=== PATIENT | female | born 1945 | race Caucasian/White ===

== ENCOUNTER 2023-05-28 18:54 | Inpatient (IN) ==
[2023-05-28] MEDS ORDERED: ONDANSETRON INJ 2 MG/ML 2 ML VIAL IV STA (19:28)
[2023-05-28] MEDS ORDERED: MoRPHine SULFATE 4 MG/ML 1 ML CARP\\VIAL IV STA ×2 (19:28→21:58)
--- NOTE | 2023-05-28 19:31 | Emergency Department Note ---
Impression & Plan Closed hip fracture ADMIT ED Provider Note HPI: History obtained from patient and daughter at the bedside. The patient is a 78-year-old female who presents emergency department with chief complaint of left hip pain after mechanical fall. Patient's daughter is at the bedside and is serving as the primary historian. She states that the patient tripped when the dog ran in front of her inside the house. Patient fell on her left hip and has had severe left hip pain since her fall. She has been unable to bear weight on her left leg. On arrival here to the ED the patient is otherwise hemodynamically stable. She denies any other focal complaint of pain, denies hitting her head. Patient has motor and sensory function intact distally in the left lower extremity on arrival. ROS: - Per HPI Differential Diagnosis: Left hip fracture, left hip dislocation, left hip contusion, osteoarthritis, amongst other potential pathologies. *Outpatient medications and allergy history reviewed. PE: General: Alert HEENT: Normocephalic, trachea midline Eyes: Extraocular eye movement is intact, no scleral erythema Pulmonary: Clear to auscultation bilaterally, no wheezing Cardio: Regular rate and rhythm GI: Abdomen is soft to palpation : No suprapubic tenderness MSK: No evidence of trauma or malformation of the extremities, no edema, limited range of motion of the left hip secondary to pain, patient maintains flexion and extension of the left foot with a palpable dorsalis pedis pulse in the left lower extremity Skin: No evidence of rash Neuro: Alert, no focal deficits Psychiatric: Cooperative INDEPENDENT INTERPRETATIONS: monitor and storage bin tender: (As interpreted by myself): - An order was placed for continuous cardiac monitoring - Patient was noted to be in sinus rhythm with rate of 80 EKG: (As interpreted by myself): Rate: 83 Rhythm: Sinus rhythm Intervals: Within normal limits ST changes: No ST elevation Time: 2105 Chest x-ray: (As interpreted by myself): -No acute disease X-ray pelvis: (As interpreted by myself): -Left intertrochanteric hip fracture Interventions provided in ED: -IV morphine, IV Zofran Medical Decision Making: Lab work shows no leukocytosis, hemoglobin is normal, platelet count is normal, CMP shows a mild hyponatremia, no critical findings are noted, x-ray imaging of the pelvis per my interpretation shows evidence of a intertrochanteric left hip fracture. Patient was given IV morphine and IV Zofran here in the ED for pain with good improvement. I discussed the above findings with the patient and her daughter at the bedside. They are agreeable for admission for orthopedic consultation and operative intervention[facility]hip [facility] case was discussed with Dr. Pang, and the patient was placed for admission in stable condition. Consultants/Discussions held with other healthcare providers: -Hospitalist, Dr. Pang Disposition discussion held by myself with: -Patient and daughter at the bedside Diagnosis: 1. Left-sided hip fracture, acute, closed 2. Mechanical fall, acute Disposition: Admission Cesar Bey DO Emergency Medicine Past Med/Surg History Social History Smoking Status: Never smoker Feels Safe at Home: Yes Allergies Allergies Allergy/AdvReac Type Severity Reaction Status Date / Time No Known Allergies Allergy Unverified 05/28/23 21:37 Home Meds Home Medications Medication Instructions Recorded Confirmed candesartan 16 mg tablet 8 mg PO DAILY 05/28/23 05/28/23 Results & Data (ED) Vital Signs Vital Signs - 24 hr 05/28/23 19:03 05/28/23 20:19 05/28/23 20:30 Temperature 36.8 C Temperature Source Oral Pulse Rate 82 87 81 Pulse Rate from SpO2 Sensor 87 82 Pulse Rhythm Respiratory Rate 18 22 17 Blood Pressure 166/82 H Blood Pressure Mean 110 Pulse Oximetry 94 93 93 Oxygen Delivery Method Sepsis Recent Fever Within 48 Hours No Sepsis New/Unexplained Change in Mental Status No Sepsis Action Taken by Nursing No Action Required 05/28/23 20:30 05/28/23 20:34 05/28/23 20:40 Temperature Temperature Source Pulse Rate 87 86 Pulse Rate from SpO2 Sensor Pulse Rhythm Regular Respiratory Rate 18 Blood Pressure 140/104 H Blood Pressure Mean 116 Pulse Oximetry 95 Oxygen Delivery Method Room Air Sepsis Recent Fever Within 48 Hours Sepsis New/Unexplained Change in Mental Status Sepsis Action Taken by Nursing 05/28/23 21:00 05/28/23 21:00 05/28/23 21:30 Temperature Temperature Source Pulse Rate 80 87 Pulse Rate from SpO2 Sensor 81 87 Pulse Rhythm Respiratory Rate 22 Blood Pressure 142/81 H Blood Pressure Mean 88 Pulse Oximetry 92 91 Oxygen Delivery Method Sepsis Recent Fever Within 48 Hours Sepsis New/Unexplained Change in Mental Status Sepsis Action Taken by Nursing 05/28/23 21:30 05/28/23 22:00 05/28/23 22:30 Temperature Temperature Source Pulse Rate 88 81 Pulse Rate from SpO2 Sensor 88 82 Pulse Rhythm Respiratory Rate 24 18 Blood Pressure 146/81 H Blood Pressure Mean 110 Pulse Oximetry 91 96 Oxygen Delivery Method Sepsis Recent Fever Within 48 Hours Sepsis New/Unexplained Change in Mental Status Sepsis Action Taken by Nursing 05/28/23 22:30 Temperature Temperature Source Pulse Rate Pulse Rate from SpO2 Sensor Pulse Rhythm Respiratory Rate Blood Pressure 117/80 Blood Pressure Mean 101 Pulse Oximetry Oxygen Delivery Method Sepsis Recent Fever Within 48 Hours Sepsis New/Unexplained Change in Mental Status Sepsis Action Taken by Nursing Laboratory Data 05/28/23 19:50 05/28/23 19:50 Lab Results 05/28/23 05/28/23 Range/Units 19:50 20:51 WBC 8.64 (4.8-10.8) K/ul RBC 4.41 (4.20-5.40) M/uL Hgb 12.9 (12.0-16.0) g/dl Hct 38.8 (37.0-47.0) % MCV 88.0 (80.0-100.0) fL MCH 29.3 (25.0-34.0) pg MCHC 33.2 (32.0-36.0) g/dL RDW Std Deviation 43.5 (36.4-46.3) fL RDW Coeff of Arabella 13.3 (11.5-14.5) % Plt Count 157 (130-400) K/uL MPV 12.1 (9.4-12.4) fL PT 11.4 (9.0-12.0) Seconds INR 1.0 (0.9-1.1) Sodium 135 L (136-145) mmol/L Potassium 4.2 (3.5-5.1) mmol/L Chloride 102 (98-107) mmol/L Carbon Dioxide 26 (21-32) mmol/L Anion Gap 7 (3-11) BUN 21 (6-23) mg/dl Creatinine 0.60 (0.6-1.2) mg/dl Est Cr Clr Drug Dosing 83.1 ml/min Est GFR ( Amer) 99.8 ml/min Est GFR (Non-Af Amer) 86.1 ml/min BUN/Creatinine Ratio 35.0 H (10-20) Glucose 113 H (70-99(Fasting)) mg/dl Calcium 8.7 (8.6-10.3) mg/dl Magnesium 1.9 (1.7-2.4) mg/dl Total Bilirubin 0.3 (0.2-1.0) mg/dl AST 14 (13-39) U/L ALT 7 (7-52) U/L Alkaline Phosphatase 70 (34-104) U/L Total Protein 7.3 (6.0-8.3) gm/dl Albumin 3.9 (3.4-5.0) gm/dl Globulin 3.4 (2.5-4.0) gm/dl Albumin/Globulin Ratio 1.1 (0.9-2) Blood Type B Positive Antibody Screen NEGATIVE Administered Medications Discontinued Medications Morphine Sulfate (Morphine Sulfate 4 Mg/Ml 1 Ml Carp\Vial) 4 mg IV NOW STA Stop: 05/28/23 19:29 Last Admin: 05/28/23 19:58 Dose: 4 mg Documented By: GARY Morphine Sulfate (Morphine Sulfate 4 Mg/Ml 1 Ml Carp\Vial) 4 mg IV NOW STA Stop: 05/28/23 21:59 Last Admin: 05/28/23 22:16 Dose: 4 mg Documented By: GARY Ondansetron HCl (Ondansetron Inj 2 Mg/Ml 2 Ml Vial) 4 mg IV NOW STA Stop: 05/28/23 19:29 Last Admin: 05/28/23 19:56 Dose: 4 mg Documented By: GARY Discharge Plan Visit Data Chief Complaint: Fall ED Provider: Cesar Bey Discharge Problem: Closed hip fracture Forms Stand Alone Forms: [facility] Prescriptions Prescriptions: No Action candesartan 16 mg Tablet 8 mg PO DAILY Referrals Referrals: PCP,NO [Primary Care Provider] - Discharge Problem: Closed hip fracture Qualifiers: Encounter type: initial encounter Laterality: left Qualified Code(s): S72.002A - Fracture of unspecified part of neck of left femur, initial encounter for closed fracture
[2023-05-28 20:19] LABS: Hematocrit (blood only) 38.8 % (37.0-47.0); Hemoglobin 12.9 g/dl (12.0-16.0); Mean Corpuscular Hemoglobin 29.3 pg (25.0-34.0); Mean Corpuscular Hgb Conc 33.2 g/dL (32.0-36.0); Mean Platelet Volume 12.1 fL (9.4-12.4); Platelet Count 157 K/uL (130-400); RDW Coefficient of Variation 13.3 % (11.5-14.5); RDW Standard Deviation 43.5 fL (36.4-46.3); Red Blood Count 4.41 M/uL (4.20-5.40); White Blood Count 8.64 K/ul (4.8-10.8)
[2023-05-28 20:26] LABS: Albumin Globulin Ratio 1.1 (0.9-2); Albumin Level 3.9 gm/dl (3.4-5.0); Bilirubin,Total 0.3 mg/dl (0.2-1.0); Calcium 8.7 mg/dl (8.6-10.3); Creatinine Clr Calc Pharmacy 83.1 ml/min; Est GFR (African American) 99.8 ml/min; Est GFR (Non-African American) 86.1 ml/min; Globulin 3.4 gm/dl (2.5-4.0); Potassium 4.2 mmol/L (3.5-5.1); Total Protein 7.3 gm/dl (6.0-8.3)
[2023-05-28 20:40] LABS: Prothrombin Time 11.4 Seconds (9.0-12.0)
[2023-05-28] MEDS ORDERED: ACETAMINOPHEN 325 MG TAB PO PRN (21:52)
--- NOTE | 2023-05-28 22:55 | History & Physical Report ---
Date of Service May 28, 2023 Assessment & Plan (1) Closed hip fracture: Plan: Secondary to fall Hypertension, elevated secondary to discomfort Transient hypoxemia post narcotic administration Hyperglycemia rule out DM Medical telemetry given episodic hypoxemia Careful narcotic administration, incentive spirometry Orthopedics consult Re: Left hip fracture (ER provider already in touch with Dr. Gonzalez who recommends surgery.) Acceptable risk for cardiac complications resulting from prospective procedure Revised Cardiac Risk Index (RCRI): 1. High-risk type of surgery (examples include vascular and any open intraperitoneal or intrathoracic procedures). No 2. History of ischemic heart disease (history of myocardial infarction or positive exercise test, current compliant of chest pain considered to be secondary to myocardial ischemia, use of nitrate therapy, or ECG with pathological Q waves; do not count prior coronary revascularization procedure unless one of the other criteria for ischemic heart disease is present). No 3. History of heart failure. No 4. History of cerebrovascular disease. No 5. Diabetes mellitus requiring treatment with insulin. No 6. Preoperative serum creatinine >2.0. No Pt has revised cardiac index score of 0 points. (Class I Risk.) 3.9 % 30-day risk of , [place], or cardiac arrest. Acceptable risk for cardiac complications if surgery recommended by Orthopedics and patient/family agreeable to attendant procedural benefits and risks.. Check hemoglobin A1c DVT prophylaxis. SCDs Re: Possible surgery Full code Patient daughter requesting updates from providers. Ms. Kyra Arshad, contact #[phone]. Text document was generated using [employer] voice recognition software. It may contain grammatical or spelling errors. Kindly contact undersigned for clarification of any documentation item in question. History of Present Illness Chief Complaint: Fall, left hip pain Primary Care Provider: Dr. Sung History obtained from patient, family, and records. Limited history from patient secondary to language barrier. Medical history significant for hypertension, chronic constipation. Patient tripped at her home after her daughter's dog ran in front of her. Patient fell on her left side. Achy left hip pain, patient unable to get up. Denies head trauma, LOC, chest pain, SOB SBP 160s upon arrival at the ER. Transient O2 sats of 80s after morphine administration at the ER. Medical History as above Surgical History : Neck surgeries Family History : Heart disease Personal/Social history : Non-smoker, no EtOH intake, retired teacher, original ly from [place] Allergies Allergy/AdvReac Type Severity Reaction Status Date / Time No Known Allergies Allergy Unverified 05/28/23 21:37 Home Medications Medication Instructions Recorded Confirmed Type candesartan 16 mg tablet 8 mg PO DAILY 05/28/23 05/28/23 History Past Med/Surg History Social History Smoking Status: Never smoker Hx Alcohol Use: No Hx Substance Use: No Preferred Language: Bengali Communication Ability: Effective Communication Ability Comment: Speaks divehi Technical Service Rep Required: Yes Beliefs That Will Affect Care: None Current Living Situation: Family Other Information That Helps Us Care for You: No Feels Safe at Home: Yes Safety Concerns: Feels Safe At This Time Assistive Devices: None Review of Systems Review of Systems: Could not be reliably obtained secondary to language barrier Physical Exam Physical Exam: GENERAL: Comfortable, pleasant, obese, no respiratory distress SKIN: Normal color, warm HEENT: [place] palpebral conjunctivae, no ptosis, dry buccal mucosa, nasal cannula in place NECK : Supple, no tenderness CHEST : Decreased breath sounds, no tenderness HEART : RRR, no obvious murmurs ABDOMEN: Some distention, nontender EXTREMITIES : Minimal LE swelling, left hip tenderness NEUROLOGIC : Coherent, no facial asymmetry, no other gross focality Results & Data Results & Data Vital Signs (Past 12 Hours) Vital Signs Temp Pulse Resp BP Pulse Ox O2 Del Method 05/28/23 22:30 117/80 05/28/23 22:30 81 18 96 05/28/23 22:00 88 24 91 05/28/23 21:30 146/81 H 05/28/23 21:30 87 91 05/28/23 21:00 142/81 H 05/28/23 21:00 80 22 92 05/28/23 20:40 86 05/28/23 20:34 87 18 95 Room Air 05/28/23 20:30 140/104 H 05/28/23 20:30 81 17 93 05/28/23 20:19 87 22 93 05/28/23 19:03 36.8 C 82 18 166/82 H 94 Laboratory Results Laboratory Results WBC 8.64 K/ul (4.8-10.8) 05/28/23 19:50 RBC 4.41 M/uL (4.20-5.40) 05/28/23 19:50 Hgb 12.9 g/dl (12.0-16.0) 05/28/23 19:50 Hct 38.8 % (37.0-47.0) 05/28/23 19:50 MCV 88.0 fL (80.0-100.0) 05/28/23 19:50 MCH 29.3 pg (25.0-34.0) 05/28/23 19:50 MCHC 33.2 g/dL (32.0-36.0) 05/28/23 19:50 RDW Std Deviation 43.5 fL (36.4-46.3) 05/28/23 19:50 RDW Coeff of Arabella 13.3 % (11.5-14.5) 05/28/23 19:50 Plt Count 157 K/uL (130-400) 05/28/23 19:50 MPV 12.1 fL (9.4-12.4) 05/28/23 19:50 PT 11.4 Seconds (9.0-12.0) 05/28/23 19:50 INR 1.0 (0.9-1.1) 05/28/23 19:50 Sodium 135 mmol/L (136-145) L 05/28/23 19:50 Potassium 4.2 mmol/L (3.5-5.1) 05/28/23 19:50 Chloride 102 mmol/L (98-107) 05/28/23 19:50 Carbon Dioxide 26 mmol/L (21-32) 05/28/23 19:50 Anion Gap 7 (3-11) 05/28/23 19:50 BUN 21 mg/dl (6-23) 05/28/23 19:50 Creatinine 0.60 mg/dl (0.6-1.2) 05/28/23 19:50 Est Cr Clr Drug Dosing 83.1 ml/min 05/28/23 19:50 Est GFR ( Amer) 99.8 ml/min 05/28/23 19:50 Est GFR (Non-Af Amer) 86.1 ml/min 05/28/23 19:50 BUN/Creatinine Ratio 35.0 (10-20) H 05/28/23 19:50 Glucose 113 mg/dl (70-99(Fasting)) H 05/28/23 19:50 Calcium 8.7 mg/dl (8.6-10.3) 05/28/23 19:50 Total Bilirubin 0.3 mg/dl (0.2-1.0) 05/28/23 19:50 AST 14 U/L (13-39) 05/28/23 19:50 ALT 7 U/L (7-52) 05/28/23 19:50 Alkaline Phosphatase 70 U/L (34-104) 05/28/23 19:50 Total Protein 7.3 gm/dl (6.0-8.3) 05/28/23 19:50 Albumin 3.9 gm/dl (3.4-5.0) 05/28/23 19:50 Globulin 3.4 gm/dl (2.5-4.0) 05/28/23 19:50 Albumin/Globulin Ratio 1.1 (0.9-2) 05/28/23 19:50 Blood Type B Positive 05/28/23 20:51 Antibody Screen NEGATIVE 05/28/23 20:51 Diagnostic Findings Chest x-ray as per my interpretation, borderline cardiomegaly, atelectasis X-ray as per my interpretation displaced left femoral neck fracture EKG as per my interpretation : Rate 80, NSR, normal axis, T wave flattening lateral leads, PVCs (1) Closed hip fracture Encounter type: initial encounter Laterality: left Qualified Code(s): S72.002A - Fracture of unspecified part of neck of left femur, initial encounter for closed fracture
[2023-05-28] MEDS ORDERED: PROMETHAZINE HCL 6.25 MG in SODIUM CHLORIDE 0.9% 50 ML IV PRN (23:07)
[2023-05-28] MEDS ORDERED: MoRPHine SULFATE 2 MG/ML CARP IV PRN (23:07)
[2023-05-28 23:32] LABS: Magnesium 1.9 mg/dl (1.7-2.4)
[2023-05-29] MEDS ORDERED: SODIUM CHLORIDE 0.9% 1,000 ML IV ONE
[2023-05-29] MEDS ORDERED: NALOXONE HCL 0.4 MG/1 ML VIAL/CARP IV PRN (01:32)
[2023-05-29 04:36] LABS: Basophils # (auto) 0.01 K/uL (0.00-0.20); Basophils % (auto) 0.1 %; Eosinophils # (auto) 0.01 K/uL (0.00-0.50); Eosinophils % (auto) 0.1 %; Hematocrit (blood only) 38.8 % (37.0-47.0); Hemoglobin 12.4 g/dl (12.0-16.0); Immature Granulocytes # (auto) 0.03 K/uL (0.01-0.20); Immature Granulocytes % (auto) 0.3 %; Lymphocytes # (auto) 1.42 K/uL (1.20-3.40); Lymphocytes % (auto) 16.1 %; Mean Corpuscular Hemoglobin 28.9 pg (25.0-34.0); Mean Corpuscular Volume 90.4 fL (80.0-100.0); Mean Platelet Volume 11.9 fL (9.4-12.4); Monocytes # (auto) 0.65 K/uL (0.11-0.59); Monocytes % (auto) 7.4 %; Neutrophils # (auto) 6.69 K/uL (1.40-6.50); Platelet Count 154 K/uL (130-400); RDW Coefficient of Variation 13.2 % (11.5-14.5); Red Blood Count 4.29 M/uL (4.20-5.40); White Blood Count 8.81 K/ul (4.8-10.8)
[2023-05-29 04:50] LABS: BUN Creatinine Ratio 35.6 (10-20); Calcium 8.5 mg/dl (8.6-10.3); Creatinine Clr Calc Pharmacy 84.5 ml/min; Est GFR (African American) 100.3 ml/min; Est GFR (Non-African American) 86.6 ml/min; Potassium 4.6 mmol/L (3.5-5.1)
--- NOTE | 2023-05-29 06:57 | XRay Report ---
XR hip ERNST 2v w pelvis HISTORY: 78 years-old Female Fall acute pelvic pain status post fall COMPARISON: None TECHNIQUE: AP view the pelvis with 2 views of the bilateral hips FINDINGS: Moderate osteoarthritis of the hips. Demineralized appearance of the bones. 11 mm linear metallic den sity focus overlies the right hemipelvis. There is an acute and displaced subcapital left femoral nec k fracture which demonstrates impaction and 2 mm superolateral displacement. No acute fracture or dis location of the right hip. IMPRESSION: Acute impacted and mildly displaced left subcapital fracture without dislocation. ACT 112: Negative or not required by law. The above report was generated using voice recognition software. It may contain grammatical, syntax o r spelling errors. Electronically signed by: Go Ramsey M.D. 05/29/2023 6:56 AM
--- NOTE | 2023-05-29 07:11 | XRay Report ---
XR chest 1V portable HISTORY: 78 years-old Female fall acute chest trauma status post fall. COMPARISON: None TECHNIQUE: AP view of the chest FINDINGS: Cardiac silhouette is upper limits of normal. There is apparent asymmetric positioning of the patient 's breasts causing ill-defined hazy opacity of the left hemithorax. No pneumothorax, pleural effusion , definite airspace consolidation or overt pulmonary edema. Mild likely chronic interstitial coarseni ng. Degenerative changes of the shoulders and spine. IMPRESSION: Limited exam secondary to positioning. No acute process identified. ACT 112: Negative or not required by law. The above report was generated using voice recognition software. It may contain grammatical, syntax o r spelling errors. Electronically signed by: Go Ramsey M.D. 05/29/2023 7:10 AM
[2023-05-29 08:13] LABS: Estimated Average Glucose 126 mg/dl
[2023-05-29] MEDS ORDERED: LOSARTAN POTASSIUM 25 MG TAB PO SCH (09:00)
[2023-05-29] MEDS: DOCUSATE SODIUM/SENNA 50/8.6MG TAB PO SCH (09:17)
[2023-05-29] MEDS: bisacodyL 10 MG SUPP PR PRN (12:09)
--- NOTE | 2023-05-29 14:44 | Communication Note ---
Date of Service: May 29, 2023 Imaging reviewed, patient has a displaced left femoral neck fracture. Left hip hemiarthroplasty scheduled for 05/30. Please keep NPO after MN.
--- NOTE | 2023-05-29 18:34 | Hospitalist Progress Note ---
Date of Service May 29, 2023 delayed entry date of service noted above Assessment & Plan (1) Closed hip fracture: Plan: Per admitting services addendum Close left hip fracture Secondary to fall Acceptable risk for cardiac complications resulting from prospective procedure Revised Cardiac Risk Index (RCRI): 1. High-risk type of surgery (examples include vascular and any open intraperitoneal or intrathoracic procedures). No 2. History of ischemic heart disease (history of myocardial infarction or positive exercise test, current compliant of chest pain considered to be secondary to myocardial ischemia, use of nitrate therapy, or ECG with pathological Q waves; do not count prior coronary revascularization procedure unless one of the other criteria for ischemic heart disease is present). No 3. History of heart failure. No 4. History of cerebrovascular disease. No 5. Diabetes mellitus requiring treatment with insulin. No 6. Preoperative serum creatinine >2.0. No Pt has revised cardiac index score of 0 points. (Class I Risk.) 3.9 % 30-day risk of , [place], or cardiac arrest. Acceptable risk for cardiac complications if surgery recommended by Orthopedics and patient/family agreeable to attendant procedural benefits and risks.. Surgery 05/30/2023 per orthopedic service Hypertension, elevated secondary to discomfort Usually on Candesartan 8mg daily Nonformulary Will use losartan 25 mg p.o. twice daily Monitor closely Transient hypoxemia post narcotic administration Resolving Clear breath sounds Chest x-ray clear Wean off oxygen when able DVT prophylaxis. SCDs Full code Patient daughter requesting updates from providers. Ms. Kyra Arshad, contact #[phone]. Admission and Anticipated Discharge Date Admission Date: May 28, 2023 Subjective Follow-up for fracture, etc. Seen with patient's daughter at the bedside, assisting with translation Patient is awake and alert, oriented x 3 States she feels fine overall except for pain in her left hip Worse with movement no chest pain, dyspnea, palpitations, dizziness No other symptoms Review of Systems Review of Systems: all noted and negative except for above Physical Exam Physical Exam: General- oriented x 3, not in distress, speaks in sentences with no effort or accessory muscle use Eyes- anicteric Neck- no JVD Lungs- clear breath sounds bilaterally, no rales/wheezes Heart- normal rate, regular rhythm; no murmurs Abdomen- normal bowel sounds, nondistended, soft, nontender Extremities- no pretibial edema, no calf tenderness Neuro- alert, oriented x 3; no gross focal neurologic deficits Skin- warm & dry Results & Data Results & Data Vital Signs (Past 12 Hours) Vital Signs Temp Pulse Pulse Resp BP BP Pulse Ox 05/29/23 16:06 79 18 144/82 H 95 05/29/23 15:32 82 05/29/23 14:00 14 142/87 H 96 05/29/23 13:00 18 96 05/29/23 12:00 85 19 92 05/29/23 11:00 73 17 98 05/29/23 10:34 68 16 97 05/29/23 10:34 126/79 05/29/23 10:34 69 18 126/79 97 05/29/23 10:00 86 22 97 05/29/23 09:16 131/96 05/29/23 09:16 92 H 18 96 05/29/23 09:00 77 16 97 05/29/23 08:00 83 19 98 05/29/23 07:30 75 05/29/23 07:00 77 16 98 05/29/23 06:48 36.8 C 81 18 148/81 H 98 05/29/23 06:42 82 25 H 97 05/29/23 06:42 149/81 H O2 Del Method O2 Flow Rate 05/29/23 16:06 Room Air 05/29/23 15:32 05/29/23 14:00 05/29/23 13:00 05/29/23 12:00 05/29/23 11:00 05/29/23 10:34 05/29/23 10:34 05/29/23 10:34 Room Air 05/29/23 10:00 05/29/23 09:16 05/29/23 09:16 05/29/23 09:00 05/29/23 08:00 05/29/23 07:30 05/29/23 07:00 05/29/23 06:48 Nasal Cannula 2 05/29/23 06:42 05/29/23 06:42 all noted and reviewed including below (1) Closed hip fracture Encounter type: initial encounter Laterality: left Qualified Code(s): S72.002A - Fracture of unspecified part of neck of left femur, initial encounter for closed fracture
--- NOTE | 2023-05-29 19:50 | Electrocardiogram Report ---
Test Reason : Blood Pressure : / mmHG Vent. Rate : 083 BPM Atrial Rate : 083 BPM P-R Int : 150 ms QRS Dur : 072 ms QT Int : 366 ms P-R-T Axes : 079 076 081 degrees QTc Int : 430 ms Sinus rhythm with occasional Premature ventricular complexes Otherwise normal ECG No previous ECGs available Confirmed by Sinan Leonard ([id number]) on 05/29/2023 7:49:54 PM Referred By: REFERRED SELF Confirmed By:Delfino Leonard
[2023-05-29] MEDS: oxyCODONE HCL IR 5 MG TAB (IMMEDIATE RELEASE) PO PRN (20:49)
[2023-05-29] MEDS: LOSARTAN POTASSIUM 25 MG TAB PO SCH (20:49)
--- NOTE | 2023-05-30 07:16 | Anesthesiology Consultation ---
Date of Service May 30, 2023 Assessment & Plan Chart Review Chart Review: entry manager initiated History Surgery Operation Date: 05/30/23 08:45 Proposed Procedures p Left Hip Hemiarthroplasty - Go Gonzalez DO Height/Weight Height: 5 ft 4 in Weight: 94 kg Allergies Allergy/AdvReac Type Severity Reaction Status Date / Time No Known Allergies Allergy Unverified 05/28/23 21:37 Medications Home Medications Medication Instructions Recorded Confirmed Last Taken candesartan 16 mg tablet 8 mg PO DAILY 05/28/23 05/28/23 05/28/23 Active Medications Generic Name Dose Route Start Last Admin Trade Name Freq PRN Reason Stop Dose Admin Bisacodyl 10 mg 05/29/23 01:32 05/29/23 12:09 Bisacodyl 10 Mg Supp OK 06/28/23 01:31 10 mg DAILY PRN Administration Constipation Losartan Potassium 25 mg 05/29/23 21:00 05/29/23 20:49 Losartan Potassium 25 Mg Tab PO 06/28/23 20:59 25 mg BID KATELYN Administration Oxycodone HCl 5 mg 05/28/23 21:52 05/29/23 20:49 Oxycodone Hcl Ir 5 Mg Tab (Immediate Release) PO 06/11/23 21:51 5 mg Q4H PRN Administration Pain Senna/Docusate Sodium 1 tab 05/29/23 09:00 05/29/23 09:17 Docusate Sodium/Senna 50/8.6mg Tab PO 06/28/23 08:59 1 tab QAM KATELYN Administration Social History Smoking Status: Never smoker Hx Alcohol Use: No Hx Substance Use: No Physical Exam Vital Signs Last Vital Signs Temp 98.4 F 05/30/23 03:55 Pulse 79 05/30/23 04:02 Resp 18 05/30/23 03:55 BP 136/70 05/30/23 03:55 Pulse Ox 96 05/30/23 03:55 O2 Del Method Nasal Cannula 05/30/23 03:58 O2 Flow Rate 2 05/30/23 03:58 Testing Laboratory Results 05/29/23 04:13 05/29/23 04:13 PT 11.4 Seconds (9.0-12.0) 05/28/23 19:50 INR 1.0 (0.9-1.1) 05/28/23 19:50 Hemoglobin A1c 6.0 % (4.5-5.6) H 05/28/23 19:50 Blood Type B Positive 05/29/23 04:13 Antibody Screen NEGATIVE 05/29/23 04:13 Electrocardiogram Sinus rhythm with occasional Premature ventricular complexes, rate 83 bpm Otherwise normal ECG No previous ECGs available Confirmed by Sinan Leonard ([id number]) on 05/29/2023 7:49:54 PM Chest X-Ray Date: 05/28/23 FINDINGS: Cardiac silhouette is upper limits of normal. There is apparent asymmetric positioning of the patient's breasts causing ill-defined hazy opacity of the left hemithorax. No pneumothorax, pleural effusion, definite airspace consolidation or overt pulmonary edema. Mild likely chronic interstitial coarsening. Degenerative changes of the shoulders and spine. IMPRESSION: Limited exam secondary to positioning. No acute process identified.
[2023-05-30] MEDS: LOSARTAN POTASSIUM 25 MG TAB PO SCH ×2 (10:31→22:07)
[2023-05-30] MEDS: DOCUSATE SODIUM/SENNA 50/8.6MG TAB PO SCH (10:31)
[2023-05-30] MEDS ORDERED: fentaNYL citrate PF 100 MCG/2 ML VIAL ONE ×2 (11:16→13:32)
[2023-05-30] MEDS ORDERED: THROMBIN FOR SOLN 20000 UNIT KIT ONE (12:09)
[2023-05-30] MEDS ORDERED: ORTHO JOINT ANESTHETIC ONE (12:09)
[2023-05-30] MEDS ORDERED: fentaNYL citrate PF 100 MCG/2 ML VIAL IV PRN (12:10)
[2023-05-30] MEDS ORDERED: ePHEDrine sulfate 50 MG/ML AMP IV PRN (12:10)
[2023-05-30] MEDS ORDERED: ATROPINE SULFATE 0.1 MG/ML 10ML SYR IV PRN (12:10)
[2023-05-30] MEDS ORDERED: ONDANSETRON INJ 2 MG/ML 2 ML VIAL IV PRN (12:10)
[2023-05-30] MEDS ORDERED: ceFAZolin 2000MG 2,000 MG/15 ML SYR IV ONE (12:32)
--- NOTE | 2023-05-30 12:37 | History & Physical Bridge Note ---
Date of Service May 30, 2023 History & Physical Bridge Note I have examined the patient, reviewed the History & Physical and in the interval since the performance of the History & Physical I have noted the following changes of clinical significance: no changes noted. I met with the patient and her daughter. We had a lengthy discussion regarding risk benefits potential complications of left hip hemiarthroplasty for her displaced left femoral neck fracture. After reviewing these they elected to proceed with surgical intervention and written consent was obtained.
--- NOTE | 2023-05-30 12:41 | Orthopedic Consultation ---
Date of Consultation May 30, 2023 Assessment & Plan (1) Closed hip fracture: Plan 78-year-old female with displaced left femoral neck fracture -Nonweightbearing left lower extremity -Pain controlled -Hold DVT prophylaxis per hour -Bedrest -Medical management -Plan for left hip hemiarthroplasty History of Present Illness Reason for Consultation: Displaced left femoral neck fracture Attending Physician: Ruddy Pyle MD History of Present Illness 78-year-old female presenting after sustaining a ground-level fall. She has a chief complaint of left hip pain and inability to ambulate. In the emergency department radiographs were obtained demonstrating displaced left femoral neck fracture. Orthopedics was consulted for operative management. Allergies Allergy/AdvReac Type Severity Reaction Status Date / Time No Known Allergies Allergy Unverified 05/28/23 21:37 Home Medications Medication Instructions Recorded Confirmed Type candesartan 16 mg tablet 8 mg PO DAILY 05/28/23 05/28/23 History Patient History Social History Smoking Status: Never smoker Hx Alcohol Use: No Hx Substance Use: No Preferred Language: Syriac Communication Ability: Effective Communication Ability Comment: Speaks yakut Communication Tools: IPad and Physical Gestures Home Builder Required: Yes Beliefs That Will Affect Care: None Current Living Situation: Family Other Information That Helps Us Care for You: No Feels Safe at Home: Yes Safety Concerns: Feels Safe At This Time Assistive Devices: None Physical Exam Constitutional: No acute distress, resting in bed Musculoskeletal: Left lower extremity -Pain with logroll, unable to straight l eg raise -silt s/spn/dpn/t/s -fires ta/ehl/gsc +dp/pt Results & Data Vital Signs (Past 12 Hours) Vital Signs Temp Pulse Pulse Pulse Resp BP Pulse Ox 05/30/23 11:41 36.9 C 90 20 164/95 H 91 05/30/23 07:30 81 05/30/23 07:00 37.1 C 82 18 144/74 H 96 05/30/23 04:02 79 05/30/23 03:58 05/30/23 03:55 36.9 C 89 18 136/70 96 05/30/23 01:32 76 18 137/82 96 05/30/23 01:32 Pulse Ox O2 Del Method O2 Del Method O2 Flow Rate O2 Flow Rate 05/30/23 11:41 Room Air 05/30/23 07:30 05/30/23 07:00 Nasal Cannula 2 05/30/23 04:02 05/30/23 03:58 Nasal Cannula 2 05/30/23 03:55 Nasal Cannula 2 05/30/23 01:32 Nasal Cannula 2 05/30/23 01:32 96 Room Air 2 Diagnostic Findings Radiographs of the left hip demonstrate displaced left femoral neck fracture (1) Closed hip fracture Encounter type: initial encounter Laterality: left Qualified Code(s): S72.002A - Fracture of unspecified part of neck of left femur, initial encounter for closed fracture
[2023-05-30] MEDS ORDERED: LACTATED RINGER'S 1,000 ML IV SCH (12:45)
[2023-05-30] MEDS ORDERED: BUPIVACAINE/EPINEPHRINE 0.5% MPF 1:200,000 30 ML VIAL ONE (13:06)
[2023-05-30] MEDS ORDERED: ePHEDrine sulfate 50 MG/ML AMP ONE (13:17)
[2023-05-30] MEDS ORDERED: LIDOCAINE 2% 2 ML VIAL/AMP(20MG/ML) INFIL ONE (13:17)
[2023-05-30] MEDS ORDERED: ONDANSETRON INJ 2 MG/ML 2 ML VIAL ONE (13:17)
[2023-05-30] MEDS ORDERED: PHENYLEPHRINE 100MCG/ML 10ML SYR IV ONE (13:17)
[2023-05-30] MEDS ORDERED: PROPOFOL IV EMULSION 10 MG/ML 20 ML VIAL IV ONE (13:17)
[2023-05-30] MEDS ORDERED: DEXAMETHASONE SOD INJ 4 MG/ML VIAL ONE (13:17)
[2023-05-30] MEDS ORDERED: ESMOLOL HCL INJ 10 MG/ML 10ML VIAL IV ONE (14:03)
--- NOTE | 2023-05-30 14:28 | Post Operative Brief Note ---
Immediate Post Op Note v1 Date of Surgery May 30, 2023 Pre & Post Diagnosis Operation Date: 05/30/23 08:45 Pre-Op Diagnosis: Closed Left Hip Fracture Post-Op Diagnosis: Closed Left Hip Fracture I identified the patient and participated in the time-out.: Yes Procedure Operation Date: 05/30/23 08:45 Actual Procedures p Left Hip Hemiarthroplasty(Left) - Go Gonzalez DO Surgeon Go Gonzalez DO Database Dba none Estimated Blood Loss 50 Findings Consistent with Post-Op Diagnosis see dictation Complications none
--- NOTE | 2023-05-30 14:34 | Operative Report ---
Post Operative Report Pre & Post Diagnosis Operation Date: 05/30/23 08:45 Pre-Op Diagnosis: Closed Left Hip Fracture Post-Op Diagnosis: Closed Left Hip Fracture I identified the patient and participated in the time-out.: Yes Procedure Operation Date: 05/30/23 08:45 Actual Procedures p Left Hip Hemiarthroplasty(Left) - Go Gonzalez DO Surgeon Go Gonzalez DO Information Technology Program Manager none Estimated Blood Loss 50 Findings Consistent with Post-Op Diagnosis See dictation Specimens Femoral head Complications None Indications 78-year-old female presenting after sustaining ground-level fall and injuring her left hip. In the emergency department she was found to have a displaced left femoral neck fracture. I met with the patient and her daughter and we had a lengthy discussion regarding risk benefits potential complications of left hip hemiarthroplasty. After reviewing these she elected to proceed with surgical intervention and written consent was obtained Description of Procedure Implants: Mic Taperloc femoral stem size 14 standard offset, 48 mm outer diameter bipolar head, 28 mm +3 inner bipolar head Procedure: Patient was properly marked and identified in the preoperative holding area. They were then taken back to the operative suite where they received anesthesia as well as antibiotics per protocol. They were positioned in the lateral decubitus position with the left hip facing upwards. Patient was then prepped and draped in standard orthopedic fashion timeout was then performed. Posterior lateral incision overlying the trochanter was then made with a scalpel. Electrocautery was used to dissect down through subcutaneous tissue down to the IT band and gluteal fascia which was then split in line with the incision. Charnley retractor was then placed. The piriformis was then identified and reflected off the posterior capsule. T capsulotomy was then performed and a gush of fracture hematoma was noted. The hip was then internally rotated and a tenaculum was used to remove the femoral head. Femoral neck osteotomy was then performed approximately 1 cm above the tip of the lesser trochanter using a saw. Retractors were then placed and trialing was then perfo rmed for the femoral head. A 48 mm head was noted to have excellent suction fit. Attention was then turned to preparation of the femoral canal. Box osteotome was first used followed by canal finding reamer. The canal was then sequentially broached up to a size 14 stem. Trialing was then performed with a standard offset and 48 mm +3 bipolar head. Range of motion as well as leg length and stability were noted to be satisfactory. The hip was then successfully dislocated and all trial components were removed. Dilute Betadine solution was used to copiously irrigate the wound followed by normal saline solution. A size 14 Taperloc stem was then impacted into the femoral canal under visualization of the calcar. The trunnion was then irrigated and dried and a 48 mm +3 bipolar head was then inserted onto the trunnion. The acetabulum was then checked for any interposing soft tissue and fragments and the hip was then successfully reduced. Once again range of motion and stability as well as leg lengths were all assessed and noted to be satisfactory. Attention was then turned to closure of the capsule. Using a one 0-0 Ethibond suture the capsule was then closed in a xvrr-ls-diss fashion. The retractor was then removed and the IT band and gluteal fascia was closed using combination of 1-0 Ethibond suture followed by running oh V-Loc suture. Subcutaneous tissues were then copiously irrigated with a dilute Betadine solution followed by normal saline solution. Subcutaneous tissues were then closed using 2-0 Vicryl for subcutaneous tissue followed by rocio for the skin. A sterile Silverlon dressing was placed. The patient tolerated the procedure well was taken to the recovery room in hemodynamically stable condition. I attest to the content of the Intraoperative Record and any orders documented therein. Any exceptions are noted below.
--- NOTE | 2023-05-30 14:44 | Hospitalist Progress Note ---
Date of Service May 30, 2023 Assessment & Plan (1) Closed hip fracture: Plan: Per admitting services addendum Close left hip fracture Secondary to fall Acceptable risk for cardiac complications resulting from prospective procedure Revised Cardiac Risk Index (RCRI): 1. High-risk type of surgery (examples include vascular and any open intraperitoneal or intrathoracic procedures). No 2. History of ischemic heart disease (history of myocardial infarction or positive exercise test, current compliant of chest pain considered to be secondary to myocardial ischemia, use of nitrate therapy, or ECG with pathological Q waves; do not count prior coronary revascularization procedure unless one of the other criteria for ischemic heart disease is present). No 3. History of heart failure. No 4. History of cerebrovascular disease. No 5. Diabetes mellitus requiring treatment with insulin. No 6. Preoperative serum creatinine >2.0. No Pt has revised cardiac index score of 0 points. (Class I Risk.) 3.9 % 30-day risk of , [place], or cardiac arrest. Acceptable risk for cardiac complications if surgery recommended by Orthopedics and patient/family agreeable to attendant procedural benefits and risks.. Surgery 05/30/2023 per orthopedic service Awaiting surgery Stable to proceed with planned surgery Hypertension, elevated secondary to discomfort Usually on Candesartan 8mg daily Nonformulary Will use losartan 25 mg p.o. twice daily Monitor closely -- Blood pressure closely As needed hydralazine for systolic BP more than 160 Transient hypoxemia post narcotic administration Resolved Clear breath sounds Chest x-ray clear Weaned off oxygen DVT prophylaxis. SCDs Full code Patient daughter requesting updates from providers. Ms. Kyra Lowegeorgiebrittany, contact #[phone]. Admission and Anticipated Discharge Date Admission Date: May 28, 2023 Subjective Follow-up for left hip fracture, etc. Seen resting in bed, comfortable, not distressed States she feels okay overall Except for left hip pain worse with movement Denies chest pain, shortness of breath, palpitations, dizziness No other new symptoms Review of Systems Review of Systems: all noted and negative except for above Physical Exam Physical Exam: General- oriented x 3, not in distress, speaks in sentences with no effort or accessory muscle use Eyes- anicteric Neck- no JVD Lungs- clear breath sounds bilaterally, no crackles/wheezing Heart- normal rate, regular rhythm; no murmurs Abdomen- normal bowel sounds, nondistended, soft, no tenderness Extremities- no pretibial edema, no calf tenderness Neuro- alert, oriented x 3; no gross focal neurologic deficits Skin- warm & dry Results & Data Results & Data Vital Signs (Past 12 Hours) Vital Signs Temp Pulse Pulse Pulse Resp BP Pulse Ox 05/30/23 11:41 36.9 C 90 20 164/95 H 91 05/30/23 07:30 81 05/30/23 07:00 37.1 C 82 18 144/74 H 96 05/30/23 04:02 79 05/30/23 03:58 05/30/23 03:55 36.9 C 89 18 136/70 96 O2 Del Method O2 Flow Rate 05/30/23 11:41 Room Air 05/30/23 07:30 05/30/23 07:00 Nasal Cannula 2 05/30/23 04:02 05/30/23 03:58 Nasal Cannula 2 05/30/23 03:55 Nasal Cannula 2 all noted and reviewed including below (1) Closed hip fracture Encounter type: initial encounter Laterality: left Qualified Code(s): S72.002A - Fracture of unspecified part of neck of left femur, initial encounter for closed fracture
[2023-05-30] MEDS ORDERED: hydrALAZINE HCL 20 MG/ML VIAL IV PRN (14:46)
--- NOTE | 2023-05-30 15:15 | Anesthesiology Progress Note ---
Date of Service May 30, 2023 Anesthesia Post Procedure Vital Signs Vital Signs: Temp Pulse Pulse Pulse Resp BP Pulse Ox 05/30/23 15:00 98 H 16 176/98 H 90 05/30/23 14:55 92 H 16 178/122 H 96 05/30/23 14:45 86 12 181/94 H 98 05/30/23 14:35 98.1 F 89 15 182/96 H 95 05/30/23 11:41 98.4 F 90 20 164/95 H 91 05/30/23 07:30 81 05/30/23 07:00 98.8 F 82 18 144/74 H 96 05/30/23 04:02 79 05/30/23 03:58 05/30/23 03:55 98.4 F 89 18 136/70 96 05/30/23 01:32 76 18 137/82 96 05/30/23 01:32 05/30/23 00:00 75 18 149/88 H 98 05/30/23 00:00 05/29/23 23:00 05/29/23 20:47 83 22 130/86 99 05/29/23 16:06 79 18 144/82 H 95 05/29/23 15:32 82 Pulse Ox O2 Del Method O2 Del Method O2 Flow Rate O2 Flow Rate 05/30/23 15:00 Room Air 0 05/30/23 14:55 Oxymask 4 05/30/23 14:45 Oxymask 4 05/30/23 14:35 Oxymask 8 05/30/23 11:41 Room Air 05/30/23 07:30 05/30/23 07:00 Nasal Cannula 2 05/30/23 04:02 05/30/23 03:58 Nasal Cannula 2 05/30/23 03:55 Nasal Cannula 2 05/30/23 01:32 Nasal Cannula 2 05/30/23 01:32 96 Room Air 2 05/30/23 00:00 Nasal Cannula 2 05/30/23 00:00 98 Nasal Cannula 2 05/29/23 23:00 Nasal Cannula 2 05/29/23 20:47 Nasal Cannula 2 05/29/23 16:06 Room Air 05/29/23 15:32 Transfer of Care Handoff Completed per policy Notes Mental Status: alert / awake / arousable and participated in evaluation Patient Amnestic to Procedure: Yes Nausea / Vomiting: adequately controlled Pain: adequately controlled Airway Patency, RR, SpO2: stable & adequate BP & HR: stable & adequate Hydration State: stable & adequate Anesthetic Complications: no major complications apparent and Pt Satisfied with anesthetic care
--- NOTE | 2023-05-30 15:16 | XRay Report ---
XR pelvis 1-2V routine CLINICAL HISTORY: PACU - Post Surgical TECHNIQUE: A single frontal view of the pelvis was obtained. Comparison: Comparison is made to hip radiograph 05/28/2023 FINDINGS: Patient is status post total hip arthroplasty with expected postsurgical changes including soft tissu e swelling, and subcutaneous emphysema. No periarticular lucency or hardware fracture is seen. IMPRESSION: Expected postoperative appearance status post placement of total hip arthroplasty. ACT 112: Negative or not required by law. Electronically signed by: Robert Massey M.D. 05/30/2023 3:15 PM
[2023-05-30] MEDS: SODIUM CHLORIDE 0.9% 1,000 ML IV SCH ×2 (16:45→21:03)
[2023-05-30] MEDS: ASPIRIN 81 MG ECTAB PO SCH (21:02)
[2023-05-30] MEDS: oxyCODONE HCL IR 5 MG TAB (IMMEDIATE RELEASE) PO PRN (21:02)
[2023-05-30] MEDS: ceFAZolin 2000MG 2,000 MG/15 ML SYR IV SCH (21:49)
[2023-05-31] MEDS: ceFAZolin 2000MG 2,000 MG/15 ML SYR IV SCH (04:03)
[2023-05-31 05:44] LABS: Basophils # (auto) 0.01 K/uL (0.00-0.20); Basophils % (auto) 0.1 %; Eosinophils # (auto) 0.03 K/uL (0.00-0.50); Eosinophils % (auto) 0.3 %; Hematocrit (blood only) 35.5 % (37.0-47.0); Hemoglobin 11.3 g/dl (12.0-16.0); Immature Granulocytes # (auto) 0.02 K/uL (0.01-0.20); Immature Granulocytes % (auto) 0.2 %; Lymphocytes # (auto) 1.38 K/uL (1.20-3.40); Lymphocytes % (auto) 15.8 %; Mean Corpuscular Hemoglobin 28.8 pg (25.0-34.0); Mean Corpuscular Hgb Conc 31.8 g/dL (32.0-36.0); Mean Corpuscular Volume 90.3 fL (80.0-100.0); Mean Platelet Volume 12.1 fL (9.4-12.4); Monocytes # (auto) 1.29 K/uL (0.11-0.59); Monocytes % (auto) 14.8 %; Neutrophils # (auto) 6.01 K/uL (1.40-6.50); Neutrophils % (auto) 68.8 %; Platelet Count 132 K/uL (130-400); RDW Coefficient of Variation 13.5 % (11.5-14.5); RDW Standard Deviation 44.8 fL (36.4-46.3); Red Blood Count 3.93 M/uL (4.20-5.40); White Blood Count 8.74 K/ul (4.8-10.8)
[2023-05-31 06:00] LABS: BUN Creatinine Ratio 35.3 (10-20); Calcium 8.2 mg/dl (8.6-10.3); Creatinine Clr Calc Pharmacy 73.4 ml/min; Est GFR (African American) 95.8 ml/min; Est GFR (Non-African American) 82.6 ml/min; Potassium 4.1 mmol/L (3.5-5.1)
[2023-05-31] MEDS ORDERED: ERGOCALCIFEROL 1250 MCG (50,000 UNITS) CAP PO SCH (09:00)
[2023-05-31] MEDS: ASPIRIN 81 MG ECTAB PO SCH ×2 (09:47→19:32)
[2023-05-31] MEDS: LOSARTAN POTASSIUM 25 MG TAB PO SCH (09:47)
[2023-05-31] MEDS: DOCUSATE SODIUM/SENNA 50/8.6MG TAB PO SCH (09:47)
--- NOTE | 2023-05-31 09:49 | Orthopedic Progress Note ---
Date of Service May 31, 2023 Assessment & Plan (1) Closed hip fracture: Plan: 78-year-old female status post left hip hemiarthroplasty postoperative day #1 Pain control Weightbearing as tolerated left lower extremity PT/OT DVT prophylaxis Diet Medical management Patient stable from an orthopedic standpoint. May follow-up as an outpatient in 10 to 14 days. Orthopedics will sign off at this time. Plan 78-year-old female status post left hip cephalomedullary nail Admission and Anticipated Discharge Date Admission Date: May 28, 2023 Subjective Patient seen and examined, no acute events overnight. Pain controlled Physical Exam Physical Exam: No acute distress, resting comfortably in bed Musculoskeletal: Left lower extremity -Dressing clean dry and intact -Thigh soft and compressible - silt s/spn/dpn/t/s - fires ta/ehl/gsc + dp/pt, bcr Results & Data Vital Signs (Past 12 Hours) Vital Signs Temp Pulse Pulse Resp BP Pulse Ox O2 Del Method 05/31/23 08:07 36.8 C 90 16 119/69 94 Nasal Cannula 05/31/23 07:38 85 05/31/23 03:55 37.2 C 92 H 18 120/74 93 Nasal Cannula 05/30/23 23:00 37.2 C 90 18 121/77 91 Room Air 05/30/23 22:00 84 O2 Flow Rate 05/31/23 08:07 1 05/31/23 07:38 05/31/23 03:55 1 05/30/23 23:00 05/30/23 22:00 (1) Closed hip fracture Encounter type: initial encounter Laterality: left Qualified Code(s): S72.002A - Fracture of unspecified part of neck of left femur, initial encounter for closed fracture
[2023-05-31] MEDS: oxyCODONE HCL IR 5 MG TAB (IMMEDIATE RELEASE) PO PRN (12:45)
[2023-05-31] MEDS ORDERED: traMADol HCL 50 MG TABLET PO PRN (15:54)
[2023-05-31] MEDS: ACETAMINOPHEN 1,000 MG/100 ML VIAL IV SCH ×3 (16:00→23:43)
[2023-05-31] MEDS ORDERED: SODIUM CHLORIDE 0.9% 1,000 ML IV SCH (16:00)
--- NOTE | 2023-05-31 17:40 | Hospitalist Progress Note ---
Date of Service May 31, 2023 Assessment & Plan (1) Closed hip fracture: Plan: Per admitting services addendum Close left hip fracture Secondary to fall Acceptable risk for cardiac complications resulting from prospective procedure Revised Cardiac Risk Index (RCRI): 1. High-risk type of surgery (examples include vascular and any open intraperitoneal or intrathoracic procedures). No 2. History of ischemic heart disease (history of myocardial infarction or positive exercise test, current compliant of chest pain considered to be secondary to myocardial ischemia, use of nitrate therapy, or ECG with pathological Q waves; do not count prior coronary revascularization procedure unless one of the other criteria for ischemic heart disease is present). No 3. History of heart failure. No 4. History of cerebrovascular disease. No 5. Diabetes mellitus requiring treatment with insulin. No 6. Preoperative serum creatinine >2.0. No Pt has revised cardiac index score of 0 points. (Class I Risk.) 3.9 % 30-day risk of , [place], or cardiac arrest. Acceptable risk for cardiac complications if surgery recommended by Orthopedics and patient/family agreeable to attendant procedural benefits and risks.. Surgery 05/30/2023 per orthopedic service Awaiting surgery Stable to proceed with planned surgery Hypertension, elevated secondary to discomfort Usually on Candesartan 8mg daily Nonformulary Will use losartan 25 mg p.o. twice daily Monitor closely -- Blood pressure closely As needed hydralazine for systolic BP more than 160 Transient hypoxemia post narcotic administration Resolved Clear breath sounds Chest x-ray clear Weaned off oxygen DVT prophylaxis. SCDs Full code Patient daughter requesting updates from providers. Ms. Kyra Arshad, contact #[phone]. Admission and Anticipated Discharge Date Admission Date: May 28, 2023 Subjective ff up for s/p L hip surgery, etc seen resting in bed, comfortable son Biju at bedside visiting, helping with translation states she feels fine overall has hip pain with movement no chest pain, dyspnea, palpitations, dizziness no other new symptoms in the afternoon, JESSICA Bullock reported that patient experienced dizziness during PT Review of Systems Review of Systems: all noted and negative except for above Physical Exam Physical Exam: General- oriented x 3, not in distress, speaks in sentences with no effort or accessory muscle use Eyes- anicteric Neck- no JVD Lungs- clear breath sounds bilaterally, no crackles/wheezing Heart- normal rate, regular rhythm; no murmurs Abdomen- normal bowel sounds, nondistended, soft, nontender Extremities- no pretibial edema, no calf tenderness Neuro- alert, oriented x 3; no gross focal neurologic deficits Skin- warm & dry Results & Data Results & Data Vital Signs (Past 12 Hours) Vital Signs Temp Pulse Pulse Pulse Resp BP Pulse Ox 05/31/23 14:59 37.1 C 97 H 16 110/74 92 05/31/23 12:00 05/31/23 11:17 36.6 C 88 17 113/73 96 05/31/23 08:07 36.8 C 90 16 119/69 94 05/31/23 07:38 85 Pulse Ox O2 Del Method O2 Del Method O2 Flow Rate 05/31/23 14:59 Room Air 05/31/23 12:00 96 Room Air 05/31/23 11:17 Room Air 05/31/23 08:07 Nasal Cannula 1 05/31/23 07:38 (1) Closed hip fracture Encounter type: initial encounter Laterality: left Qualified Code(s): S72.002A - Fracture of unspecified part of neck of left femur, initial encounter for closed fracture
[2023-06-01] MEDS: ACETAMINOPHEN 1,000 MG/100 ML VIAL IV SCH ×3 (08:37→23:42)
[2023-06-01] MEDS: ASPIRIN 81 MG ECTAB PO SCH ×2 (09:36→20:48)
[2023-06-01] MEDS: DOCUSATE SODIUM/SENNA 50/8.6MG TAB PO SCH (10:28)
--- NOTE | 2023-06-01 14:52 | Hospitalist Progress Note ---
Date of Service June 01, 2023 Assessment & Plan (1) Closed hip fracture: Plan: Per admitting services addendum Close left hip fracture Secondary to fall Acceptable risk for cardiac complications resulting from prospective procedure Revised Cardiac Risk Index (RCRI): 1. High-risk type of surgery (examples include vascular and any open intraperitoneal or intrathoracic procedures). No 2. History of ischemic heart disease (history of myocardial infarction or positive exercise test, current compliant of chest pain considered to be secondary to myocardial ischemia, use of nitrate therapy, or ECG with pathological Q waves; do not count prior coronary revascularization procedure unless one of the other criteria for ischemic heart disease is present). No 3. History of heart failure. No 4. History of cerebrovascular disease. No 5. Diabetes mellitus requiring treatment with insulin. No 6. Preoperative serum creatinine >2.0. No Pt has revised cardiac index score of 0 points. (Class I Risk.) 3.9 % 30-day risk of , [place], or cardiac arrest. Acceptable risk for cardiac complications if surgery recommended by Orthopedics and patient/family agreeable to attendant procedural benefits and risks.. 05/31 s/p left hip hemiarthroplasty stable overall continue IV ofirmev PRN oxy PT/OT eval Hypertension Usually on Candesartan 8mg daily Nonformulary Will use losartan 25 mg p.o. twice daily Monitor closely 06/01 hold Losartan as BP as on the lower side yesterday BP improving Transient hypoxemia post narcotic administration Resolved Clear breath sounds Chest x-ray clear Weaned off oxygen DVT prophylaxis. ASA 81mg po BID Full code Admission and Anticipated Discharge Date Admission Date: May 28, 2023 Subjective ff up for s/p l hip surgery, etc seen resting in chair, comfortable patient's son Biju at bedside states she feels fine overall just tired, sleepy pain adequately controlled no chest pain, dyspnea, palpitations, dizziness No other new symptoms Review of Systems Review of Systems: all noted and negative except for above Physical Exam Physical Exam: General- oriented x 3, not in distress, speaks in sentences with no effort or accessory muscle use Eyes- anicteric Neck- no JVD Lungs- clear breath sounds bilaterally, no rales/wheezes Heart- normal rate, regular rhythm; no murmurs Abdomen- normal bowel sounds, nondistended, soft, nontender Extremities- no pretibial edema, no calf tenderness Left hip: Mild edema, no hematoma, dressing in place, no bleeding or discharge Neuro- alert, oriented x 3; no gross focal neurologic deficits Skin- warm & dry Results & Data Results & Data Vital Signs (Past 12 Hours) Vital Signs Temp Pulse Resp BP Pulse Ox Pulse Ox O2 Del Method 06/01/23 10:02 91 H 96 Room Air 06/01/23 08:00 97 06/01/23 06:56 36.7 C 95 H 18 132/84 91 Room Air O2 Del Method 06/01/23 10:02 06/01/23 08:00 Nasal Cannula 06/01/23 06:56 all noted and reviewed including below (1) Closed hip fracture Encounter type: initial encounter Laterality: left Qualified Code(s): S72.002A - Fracture of unspecified part of neck of left femur, initial encounter for closed fracture
[2023-06-02] MEDS: ACETAMINOPHEN 1,000 MG/100 ML VIAL IV SCH (07:46)
[2023-06-02] MEDS: ASPIRIN 81 MG ECTAB PO SCH ×2 (07:49→19:53)
[2023-06-02] MEDS: DOCUSATE SODIUM/SENNA 50/8.6MG TAB PO SCH (07:52)
--- NOTE | 2023-06-02 07:53 | Hospitalist Progress Note ---
Date of Service June 02, 2023 Assessment & Plan (1) Closed hip fracture: Plan: Per admitting services addendum Close left hip fracture Secondary to fall Acceptable risk for cardiac complications resulting from prospective procedure Revised Cardiac Risk Index (RCRI): 1. High-risk type of surgery (examples include vascular and any open intraperitoneal or intrathoracic procedures). No 2. History of ischemic heart disease (history of myocardial infarction or positive exercise test, current compliant of chest pain considered to be secondary to myocardial ischemia, use of nitrate therapy, or ECG with pathological Q waves; do not count prior coronary revascularization procedure unless one of the other criteria for ischemic heart disease is present). No 3. History of heart failure. No 4. History of cerebrovascular disease. No 5. Diabetes mellitus requiring treatment with insulin. No 6. Preoperative serum creatinine >2.0. No Pt has revised cardiac index score of 0 points. (Class I Risk.) 3.9 % 30-day risk of , OR, or cardiac arrest. Acceptable risk for cardiac complications if surgery recommended by Orthopedics and patient/family agreeable to attendant procedural benefits and risks.. 06/02 s/p left hip hemiarthroplasty stable overall Continue p.o. Tylenol every 8 hours PRN oxy PT/OT eval Hypertension Usually on Candesartan 8mg daily Nonformulary Will use losartan 25 mg p.o. twice daily Monitor closely 06/01 hold Losartan as BP as on the lower side yesterday BP improving 06/02 Hold losartan for now to prevent hypotension Age-related osteoporosis with current pathologic fracture, left femur Transient hypoxemia post narcotic administration Resolved Clear breath sounds Chest x-ray clear Weaned off oxygen DVT prophylaxis. ASA 81mg po BID Full code Admission and Anticipated Discharge Date Admission Date: May 28, 2023 Subjective Follow-up for status post hip surgery, etc. Seen resting in bed, comfortable, not in distress Patient's daughter Kyra at the bedside assisting with translation States she feels fine overall Minimal discomfort over the left hip with movement no chest pain, dyspnea, palpitations, dizziness No abdominal pain, nausea vomiting No fevers or chills No other new symptoms Review of Systems Review of Systems: all noted and negative except for above Physical Exam Physical Exam: General- oriented x 3, not in distress, speaks in sentences with no effort or accessory muscle use Eyes- anicteric Neck- no JVD Lungs- clear breath sounds bilaterally, no crackles or wheezing Heart- normal rate, regular rhythm; no murmurs Abdomen- normal bowel sounds, nondistended, soft, nontender Extremities- no pretibial edema, no calf tenderness Left hip: Dressing in place, no bleeding or discharge Neuro- alert, oriented x 3; no gross focal neurologic deficits Skin- warm & dry Results & Data Results & Data Vital Signs (Past 12 Hours) Vital Signs Temp Pulse Resp BP Pulse Ox O2 Del Method 06/02/23 07:34 36.6 C 75 16 120/79 96 Room Air 06/01/23 20:26 36.7 C 83 14 118/75 98 Room Air all noted and reviewed including below (1) Closed hip fracture Encounter type: initial encounter Laterality: left Qualified Code(s): S72.002A - Fracture of unspecified part of neck of left femur, initial encounter for closed fracture
[2023-06-02] MEDS: POLYETHYLENE (MIRALAX) 17 GM PACK PO PRN (09:54)
[2023-06-02] MEDS: ACETAMINOPHEN 500 MG TAB PO SCH ×2 (16:04→22:52)
[2023-06-02] MEDS: bisacodyL 10 MG SUPP PR PRN (17:01)
[2023-06-03] MEDS: DOCUSATE SODIUM/SENNA 50/8.6MG TAB PO SCH (07:54)
[2023-06-03] MEDS: ACETAMINOPHEN 500 MG TAB PO SCH ×3 (07:54→23:46)
[2023-06-03] MEDS: ASPIRIN 81 MG ECTAB PO SCH ×2 (07:54→21:34)
[2023-06-03] MEDS: LOSARTAN POTASSIUM 25 MG TAB PO SCH (11:59)
--- NOTE | 2023-06-03 12:14 | Hospitalist Progress Note ---
Date of Service June 03, 2023 Assessment & Plan (1) Closed hip fracture: Plan: Per admitting services addendum Close left hip fracture Secondary to fall 05/30: s/p left hip hemiarthroplasty stable overall after surgery pain well controlled, continue Tylenol 1000mg q8h ASA 81mg BID for DVT prophylaxis per Ortho PT/OT eval: recommending Acute Rehab Transient hypoxemia post narcotic administration Resolved Clear breath sounds Chest x-ray clear Weaned off oxygen Hypertension Usually on Candesartan 8mg daily Nonformulary Will use losartan 25 mg p.o. daily Monitor closely Constipation tap water enema give 06/02 with small BMs no abdominal pain, nausea KUB today may need another dose of tap water enema continue Senokot/S daily Age-related osteoporosis with current pathologic fracture, left femur Vit D < 7 Vit D 50k x 6 weeks, then repeat Vit D Vitamin B12 1000mg IM ordered as outpatient, supposed to receive 2nd dose 06/04, ordered today per daughter's request DVT prophylaxis. ASA 81mg po BID Full code Disposition awaiting acceptance to [facility] Admission and Anticipated Discharge Date Admission Date: May 28, 2023 Subjective ff up for s/p L hip surgery, history of hypertension, etc seen resting in bed, comfortable patient's daughter at bedside , assisting with translation states she feels fine overall pain minimal no chest pain, dyspnea, palpitations, dizziness had small BMs yesterday after tap water enema no abdominal pain, nausea, vomiting no other new symptoms Review of Systems Review of Systems: all noted and negative except for above Physical Exam Physical Exam: General- oriented x 3, not in distress, speaks in sentences with no effort or accessory muscle use Eyes- anicteric Neck- no JVD Lungs- clear breath sounds bilaterally, no rales/wheezes Heart- normal rate, regular rhythm; no murmurs Abdomen- normal bowel sounds, nondistended, soft, nontender Extremities- no pretibial edema, no calf tenderness L hip: dressing in place, no bleeding or discharge Neuro- alert, oriented x 3; no gross focal neurologic deficits Skin- warm & dry Results & Data Results & Data Vital Signs (Past 12 Hours) Vital Signs Temp Pulse Resp BP Pulse Ox O2 Del Method 06/03/23 11:31 94 H 18 145/82 H 94 Room Air 06/03/23 07:37 36.7 C 80 18 138/83 95 Room Air all noted and reviewed including below (1) Closed hip fracture Encounter type: initial encounter Laterality: left Qualified Code(s): S72.002A - Fracture of unspecified part of neck of left femur, initial encounter for closed fracture
[2023-06-03] MEDS ORDERED: CYANOCOBALAMIN 1000 MCG/ML VIAL IM ONE (12:15)
[2023-06-03] MEDS: POLYETHYLENE (MIRALAX) 17 GM PACK PO PRN (12:20)
--- NOTE | 2023-06-03 12:34 | XRay Report ---
KUB HISTORY: Acute onset abdominal pain with constipation constipation COMPARISON: Pelvis radiograph 05/30/2023 FINDINGS: Nonobstructive bowel gas pattern. Gaseous distention of the transverse colon. 1.3 cm linear metallic density focus overlying the pelvis redemonstrated. Fecal retention in the rectum which is d istended to 9 cm transversely. No renal calculi. No ureteral calculi. No pneumoperitoneum or pneumat osis. Left hip arthroplasty. No fracture. IMPRESSION: 1. Nonobstructive bowel gas pattern. 2. Moderate to extensive fecal retention of the rectum. ACT 112: Negative or not required by law. The above report was generated using voice recognition software. It may contain grammatical, syntax o r spelling errors. Electronically signed by: Go Ramsey M.D. 06/03/2023 12:33 PM
[2023-06-04] MEDS: ACETAMINOPHEN 500 MG TAB PO SCH ×2 (08:36→17:12)
[2023-06-04] MEDS: ASPIRIN 81 MG ECTAB PO SCH ×2 (08:36→20:41)
[2023-06-04] MEDS: LOSARTAN POTASSIUM 25 MG TAB PO SCH (08:37)
[2023-06-04] MEDS: DOCUSATE SODIUM/SENNA 50/8.6MG TAB PO SCH (08:42)
[2023-06-04 08:50] LABS: Hematocrit (blood only) 30.9 % (37.0-47.0); Mean Corpuscular Hemoglobin 29.3 pg (25.0-34.0); Mean Corpuscular Hgb Conc 32.4 g/dL (32.0-36.0); Mean Corpuscular Volume 90.6 fL (80.0-100.0); Mean Platelet Volume 11.6 fL (9.4-12.4); Platelet Count 195 K/uL (130-400); RDW Coefficient of Variation 13.9 % (11.5-14.5); RDW Standard Deviation 45.8 fL (36.4-46.3); Red Blood Count 3.41 M/uL (4.20-5.40); White Blood Count 5.56 K/ul (4.8-10.8)
[2023-06-04] MEDS ORDERED: COUGH DROP (SUGAR FREE) LOZ 24 LOZ/1 BOX BUCCAL PRN (09:03)
[2023-06-04] MEDS ORDERED: guaiFENesin/DEXTROM SYRUP 100MG/10MG 5ML UDC PO PRN (09:03)
[2023-06-04] MEDS ORDERED: guaiFENesin/DEXTROM SYRUP 100MG/10MG 5ML UDC PO ONE (09:03)
[2023-06-04] MEDS ORDERED: COUGH DROP (SUGAR FREE) LOZ 24 LOZ/1 BOX BUCCAL STA (09:03)
[2023-06-04 09:10] LABS: BUN Creatinine Ratio 30.6 (10-20); Calcium 8.7 mg/dl (8.6-10.3); Creatinine Clr Calc Pharmacy 98.7 ml/min; Est GFR (African American) 106.6 ml/min
[2023-06-04 11:00] LABS: Adenovirus PCR Not Detected (NotDetected); Bordetella parapertussis PCR Not Detected (NotDetected); Bordetella pertussis PCR Not Detected (NotDetected); Chlamydia pneumoniae PCR Not Detected (NotDetected); Coronavirus 229E PCR Not Detected (NotDetected); Coronavirus CoV-2 (COVID19)PCR Not Detected (NotDetected); Coronavirus HKU1 PCR Not Detected (NotDetected); Coronavirus NL63 PCR Not Detected (NotDetected); Coronavirus OC43PCR Not Detected (NotDetected); Human Metapneumovirus PCR Not Detected (NotDetected); Influenza A PCR Not Detected (NotDetected); Influenza B PCR Not Detected (NotDetected); Mycoplasma pneumoniae PCR Not Detected (NotDetected); Parainfluenza Virus 1 PCR Not Detected (NotDetected); Parainfluenza Virus 2 PCR Not Detected (NotDetected); Parainfluenza Virus 3 PCR Not Detected (NotDetected); Parainfluenza Virus 4 PCR Not Detected (NotDetected); Respiratory Syncytial VirusPCR Not Detected (NotDetected); Rhinovirus/Enterovirus PCR Not Detected (NotDetected)
[2023-06-04] MEDS: POLYETHYLENE (MIRALAX) 17 GM PACK PO PRN (14:29)
--- NOTE | 2023-06-04 15:18 | Hospitalist Progress Note ---
Date of Service June 04, 2023 Assessment & Plan (1) Closed hip fracture: Plan: Ms. Kauffman is an 78 year old woman with past medical history notable for hypertension and chronic constipation who was admitted on 05/28 for closed left hip fracture. She is now s/p left hip hemiarthoplasty 05/30. Course has been fairly uncomplicated. Patient awaiting discharge to rehab. On 06/04, patient with chills and cough. #Cough -Reports dry cough and chills, no WBC count, biofire negative -Symptomatic treatment #Closed left hip fracture s/p left hip hemiarthroplasty #Mechanical Fall 05/30, s/p repair with [place] stable overall after surgery pain well controlled, continue Tylenol 1000mg q8h ASA 81mg BID for DVT prophylaxis per Ortho PT/OT eval: pending discharge #Transient hypoxemia post narcotic administration Resolved Clear breath sounds Chest x-ray clear Weaned off oxygen #Hypertension Usually on Candesartan 8mg daily Nonformulary Will use losartan 25 mg p.o. daily Monitor closely #Constipation tap water enema give 06/02 with small BMs no abdominal pain, nausea KUB today may need another dose of tap water enema continue Senokot/S daily #Age-related osteoporosis with current pathologic fracture, left femur Vit D < 7 Vit D 50k x 6 weeks, then repeat Vit D Vitamin B12 1000mg IM ordered as outpatient, supposed to receive 2nd dose 06/04, ordered 06/03 DVT prophylaxis. ASA 81mg po BID Full code Disposition awaiting acceptance to [facility] Admission and Anticipated Discharge Date Admission Date: May 28, 2023 Subjective NAEO Sitting in bedside chair, reports dry cough and chilled given "tempature of room" per son who translated over ipad Patient otherwise denied any further acute concerns Physical Exam Constitutional: WD/WN, vitals as above Respiratory: normal respiratory effort, lungs clear to auscultation dry cough on exam, no wheezing crackles Cardiovascular: RRR, no murmur, no edema Results & Data Results & Data Vital Signs (Past 12 Hours) Vital Signs Temp Pulse Resp BP Pulse Ox O2 Del Method 06/04/23 14:57 36.8 C 88 18 116/72 97 Room Air 06/04/23 08:35 88 124/80 06/04/23 07:13 36.8 C 79 18 124/79 97 Room Air Laboratory Results Short CBC 06/04/23 Range/Units 08:25 WBC 5.56 (4.8-10.8) K/ul Hgb 10.0 L (12.0-16.0) g/dl Hct 30.9 L (37.0-47.0) % Plt Count 195 (130-400) K/uL BMP 06/04/23 08:25 Sodium 137 Potassium 4.0 Chloride 100 Carbon Dioxide 32 BUN 15 Creatinine 0.49 L Glucose 102 H Calcium 8.7 Medications Administered Home Medications Medication Instructions Recorded Confirmed Last Taken candesartan 16 mg tablet 8 mg PO DAILY 05/28/23 05/28/23 05/28/23 Active Medications Generic Name Dose Route Start Last Admin Trade Name Freq PRN Reason Stop Dose Admin Acetaminophen 1,000 mg 06/02/23 16:00 06/04/23 08:36 Acetaminophen 500 Mg Tab PO 07/02/23 15:59 1,000 mg Q8H KATELYN Administration Aspirin 81 mg 05/30/23 21:00 06/04/23 08:36 Aspirin 81 Mg Ectab PO 06/29/23 20:59 81 mg BID KATELYN Administration Bisacodyl 10 mg 05/29/23 01:32 06/02/23 17:01 Bisacodyl 10 Mg Supp NM 06/28/23 01:31 10 mg DAILY PRN Administration Constipation Ergocalciferol 50,000 units 05/31/23 09:00 05/31/23 09:47 Ergocalciferol 50,000 Units 1250 Mcg Cap PO 06/30/23 08:59 50,000 units Q7D@0900 KATELYN Administration Losartan Potassium 25 mg 06/03/23 10:30 06/04/23 08:37 Losartan Potassium 25 Mg Tab PO 07/03/23 10:29 25 mg DAILY KATELYN Administration Oxycodone HCl 5 mg 05/28/23 21:52 05/31/23 12:45 Oxycodone Hcl Ir 5 Mg Tab (Immediate Release) PO 06/11/23 21:51 5 mg Q4H PRN Administration Pain Polyethylene Glycol 17 gm 06/04/23 15:30 06/04/23 15:48 Polyethylene (Miralax) 17 Gm Pack PO 07/04/23 15:29 Not Given DAILY KATELYN Senna/Docusate Sodium 1 tab 05/29/23 09:00 06/04/23 08:42 Docusate Sodium/Senna 50/8.6mg Tab PO 06/28/23 08:59 1 tab QAM KATELYN Administration (1) Closed hip fracture Encounter type: initial encounter Laterality: left Qualified Code(s): S72.002A - Fracture of unspecified part of neck of left femur, initial encounter for closed fracture
[2023-06-04] MEDS: POLYETHYLENE (MIRALAX) 17 GM PACK PO SCH (15:48)
[2023-06-04] MEDS ORDERED: MELATONIN 3 MG TAB PO PRN (20:55)
[2023-06-05 06:40] LABS: Hematocrit (blood only) 30.1 % (37.0-47.0); Hemoglobin 10.1 g/dl (12.0-16.0); Mean Corpuscular Hemoglobin 29.4 pg (25.0-34.0); Mean Corpuscular Hgb Conc 33.6 g/dL (32.0-36.0); Mean Corpuscular Volume 87.8 fL (80.0-100.0); Mean Platelet Volume 11.3 fL (9.4-12.4); Platelet Count 212 K/uL (130-400); RDW Coefficient of Variation 14.3 % (11.5-14.5); RDW Standard Deviation 45.7 fL (36.4-46.3); Red Blood Count 3.43 M/uL (4.20-5.40); White Blood Count 6.62 K/ul (4.8-10.8)
[2023-06-05 07:03] LABS: BUN Creatinine Ratio 32.6 (10-20); Calcium 8.8 mg/dl (8.6-10.3); Creatinine Clr Calc Pharmacy 105.1 ml/min; Est GFR (African American) 108.9 ml/min; Phosphorus 4.6 mg/dl (2.5-4.9); Potassium 4.3 mmol/L (3.5-5.1)
[2023-06-05] MEDS: ACETAMINOPHEN 500 MG TAB PO SCH ×3 (08:10→15:46)
[2023-06-05] MEDS: POLYETHYLENE (MIRALAX) 17 GM PACK PO SCH (08:11)
[2023-06-05] MEDS: LOSARTAN POTASSIUM 25 MG TAB PO SCH (08:11)
[2023-06-05] MEDS: ASPIRIN 81 MG ECTAB PO SCH (08:12)
[2023-06-05] MEDS: DOCUSATE SODIUM/SENNA 50/8.6MG TAB PO SCH (11:13)
--- NOTE | 2023-06-05 13:51 | Hospitalist Progress Note ---
Date of Service June 05, 2023 Assessment & Plan (1) Closed hip fracture: Plan: Ms. Kauffman is an 78 year old woman with past medical history notable for hypertension and chronic constipation who was admitted on 05/28 for closed left hip fracture. She is now s/p left hip hemiarthoplasty 05/30. Course has been fairly uncomplicated. Patient awaiting discharge to rehab. On 06/04, patient with chills and cough; however, resolved on 06/05. #Cough*resolved -Reports dry cough and chills, no WBC count, biofire negative -Symptomatic treatment -Afebrile, no further concerns #Closed left hip fracture s/p left hip hemiarthroplasty #Mechanical Fall 05/30, s/p repair with [place] stable overall after surgery pain well controlled, continue Tylenol 1000mg q8h ASA 81mg BID for DVT prophylaxis per Ortho PT/OT eval: pending discharge to [facility] likely 06/06 #Transient hypoxemia post narcotic administration *resolved Resolved Clear breath sounds Chest x-ray clear Weaned off oxygen #Hypertension Usually on Candesartan 8mg daily Nonformulary Will use losartan 25 mg p.o. daily Monitor closely #Constipation tap water enema give 06/02 with small BMs no abdominal pain, nausea KUB today may need another dose of tap water enema continue Senokot/S daily Continue Miralax BID #Age-related osteoporosis with current pathologic fracture, left femur Vit D < 7 Vit D 50k x 6 weeks, then repeat Vit D Vitamin B12 1000mg IM ordered as outpatient, supposed to receive 2nd dose 06/04, ordered 06/03 DVT prophylaxis. ASA 81mg po BID Full code Disposition awaiting acceptance to [facility], 06/06 Admission and Anticipated Discharge Date Admission Date: May 28, 2023 Subjective NAEO Reports feeling better symptomatically, notes a poor night sleep in the bed but otherwise denies any further cough, chest pain or uncontrolled pain Physical Exam Constitutional: WD/WN, vitals as above Respiratory: normal respiratory effort, lungs clear to auscultation Cardiovascular: RRR, no murmur, no edema Results & Data Results & Data Vital Signs (Past 12 Hours) Vital Signs Temp Pulse Resp BP Pulse Ox O2 Del Method 06/05/23 07:15 36.4 C L 77 16 131/77 96 Room Air Laboratory Results Short CBC 02/01/24 Range/Units 05:42 WBC 6.62 (4.8-10.8) K/ul Hgb 10.1 L (12.0-16.0) g/dl Hct 30.1 L (37.0-47.0) % Plt Count 212 (130-400) K/uL [facility] 06/05/23 05:42 Sodium 137 Potassium 4.3 Chloride 100 Carbon Dioxide 31 BUN 15 Creatinine 0.46 L Glucose 103 H Calcium 8.8 Medications Administered Home Medications Medication Instructions Recorded Confirmed Last Taken candesartan 16 mg tablet 8 mg PO DAILY 05/28/23 05/28/23 05/28/23 acetaminophen 500 mg tablet 1,000 mg (2 x 500 mg) PO Q8H #30 06/05/23 Unknown (Tylenol Extra Strength) tabs aspirin 81 mg tablet,delayed 81 mg PO BID 90 days #180 tabs 06/05/23 Unknown release ergocalciferol (vitamin D2) 1,250 50,000 unit PO Q7D@0900 #12 caps 06/05/23 Unknown mcg (50,000 unit) capsule polyethylene glycol 3350 17 gram 17 g PO DAILY 30 days #30 ea 06/05/23 Unknown oral powder packet (Miralax) sennosides 8.6 mg-docusate sodium 1 tab PO QAM 30 days #30 tabs 06/05/23 Unknown 50 mg tablet (Senokot-S) Active Medications Generic Name Dose Route Start Last Admin Trade Name Freq PRN Reason Stop Dose Admin Acetaminophen 1,000 mg 06/02/23 16:00 06/05/23 08:10 Acetaminophen 500 Mg Tab PO 07/02/23 15:59 1,000 mg Q8H KATELYN Administration Aspirin 81 mg 05/30/23 21:00 06/05/23 08:12 Aspirin 81 Mg Ectab PO 06/29/23 20:59 81 mg BID KATELYN Administration Bisacodyl 10 mg 05/29/23 01:32 06/02/23 17:01 Bisacodyl 10 Mg Supp [place] 06/28/23 01:31 10 mg DAILY PRN Administration Constipation Losartan Potassium 25 mg 06/03/23 10:30 06/05/23 08:11 Losartan Potassium 25 Mg Tab PO 07/03/23 10:29 25 mg DAILY KATELYN Administration Melatonin 3 mg 06/04/23 20:55 06/04/23 21:09 Melatonin 3 Mg Tab PO 07/04/23 20:54 3 mg HS PRN Administration Sleep Oxycodone HCl 5 mg 05/28/23 21:52 05/31/23 12:45 Oxycodone Hcl Ir 5 Mg Tab (Immediate Release) PO 06/11/23 21:51 5 mg Q4H PRN Administration Pain Polyethylene Glycol 17 gm 06/04/23 15:30 06/05/23 08:11 Polyethylene (Miralax) 17 Gm Pack PO 07/04/23 15:29 17 gm DAILY KATELYN Administration Senna/Docusate Sodium 1 tab 05/29/23 09:00 06/05/23 11:13 Docusate Sodium/Senna 50/8.6mg Tab PO 06/28/23 08:59 1 tab QAM KATELYN Administration (1) Closed hip fracture Encounter type: initial encounter Laterality: left Qualified Code(s): S72.002A - Fracture of unspecified part of neck of left femur, initial encounter for closed fracture
--- NOTE | 2023-06-05 17:44 | Discharge Summary ---
Discharge Summary Date of Service June 05, 2023 Notes For Next Care Provider Medication Changes From Visit Resume candesartan ASA BID per ortho for DVT ppx Admission HPI Per Admitting Provider History obtained from patient, family, and records. Limited history from patient secondary to language barrier. Medical history significant for hypertension, chronic constipation. Patient tripped at her home after her daughter's dog ran in front of her. Patient fell on her left side. Achy left hip pain, patient unable to get up. Denies head trauma, LOC, chest pain, SOB SBP 160s upon arrival at the ER. Transient O2 sats of 80s after morphine administration at the ER. Medical History as above Surgical History : Neck surgeries Family History : Heart disease Personal/Social history : Non-smoker, no EtOH intake, retired teacher, originally from [place] Admission Exam Per Admitting Provider GENERAL: Comfortable, pleasant, obese, no respiratory distress SKIN: Normal color, warm HEENT: [place] palpebral conjunctivae, no ptosis, dry buccal mucosa, nasal cannula in place NECK : Supple, no tenderness CHEST : Decreased breath sounds, no tenderness HEART : RRR, no obvious murmurs ABDOMEN: Some distention, nontender EXTREMITIES : Minimal LE swelling, left hip tenderness NEUROLOGIC : Coherent, no facial asymmetry, no other gross focality Principal Dx & Hospital Course #1 = Principal Diagnosis (1) Closed hip fracture: Ms. Kauffman is an 78 year old woman with past medical history notable for hypertension and chronic constipation who was admitted on 05/28 for closed left hip fracture. She is now s/p left hip hemiarthoplasty 05/30. Course has been fairly uncomplicated. Patient awaiting discharge to rehab. On 06/04, patient with chills and cough; however, resolved on 06/05. #Cough*resolved -Reports dry cough and chills, no WBC count, biofire negative -Symptomatic treatment -Afebrile, no further concerns #Closed left hip fracture s/p left hip hemiarthroplasty #Mechanical Fall 05/30, s/p repair with [place] stable overall after surgery pain well controlled, continue Tylenol 1000mg q8h ASA 81mg BID for DVT prophylaxis per Ortho PT/OT eval: discharge to [facility], family will take this evening #Transient hypoxemia post narcotic administration *resolved Resolved Clear breath sounds Chest x-ray clear Weaned off oxygen #Hypertension Usually on Candesartan 8mg daily Nonformulary Will use losartan 25 mg p.o. daily Monitor closely #Constipation tap water enema give 06/02 with small BMs no abdominal pain, nausea KUB today may need another dose of tap water enema continue Senokot/S daily Continue Miralax BID #Age-related osteoporosis with current pathologic fracture, left femur Vit D < 7 Vit D 50k x 6 weeks, then repeat Vit D Vitamin B12 1000mg IM ordered as outpatient, supposed to receive 2nd dose 06/04, ordered 06/03 Discharge Exam Constitutional WD/WN, vitals as above Respiratory normal respiratory effort, lungs clear to auscultation Cardiovascular RRR, no murmur, no edema Updated Medication List Medication Instructions Recorded Confirmed Type candesartan 16 mg tablet 8 mg PO DAILY 05/28/23 05/28/23 History acetaminophen 500 mg tablet 1,000 mg (2 x 500 mg) PO Q8H #30 06/05/23 Rx (Tylenol Extra Strength) tabs aspirin 81 mg tablet,delayed 81 mg PO BID 90 days #180 tabs 06/05/23 Rx release ergocalciferol (vitamin D2) 1,250 50,000 unit PO Q7D@0900 #12 caps 06/05/23 Rx mcg (50,000 unit) capsule polyethylene glycol 3350 17 gram 17 g PO DAILY 30 days #30 ea 06/05/23 Rx oral powder packet (Miralax) sennosides 8.6 mg-docusate sodium 1 tab PO QAM 30 days #30 tabs 06/05/23 Rx 50 mg tablet (Senokot-S) Hospital Stay Data Consultations 05/28/23 21:18 Consult Orthopedic Surgery Routine 05/28/23 21:24 ED Decision to Admit Stat Procedures Performed Operation Date: 05/30/23 08:45 Actual Procedures p Left Hip Hemiarthroplasty(Left) - Go Gonzalez, DO Pending Results Patient Have Any Pending Studies at Discharge: No Discharge Instructions Given to Patient (Per Discharging Provider) You were admitted after a fall and noted to have a hip fracture. Your hip was fixed on 05/30/2023 Please take the following medications: Aspirin 81 mg two times a day until told to discontinue by Orthopedics You can continue Tylenol/Acetaminophen for pain control. Please do not exceed more than 4,000mg a day. -Ideally taking 500mg every 4 to 6 hours as needed You were also sent a prescription for Miralax and Senokot to help with your bowel movements/prevent constipation. Please follow up with Dr. Gonzalez/Orthopedics in the coming week, 06/09-06/13 Total Time Total Time Spent Total Time Spent (In Minutes): 45
[2023-06-05] MEDS ORDERED: POLYETHYLENE (MIRALAX) 17 GM PACK PO SCH (21:00)
[2023-06-07] MEDS ORDERED: ERGOCALCIFEROL 1250 MCG (50,000 UNITS) CAP PO SCH (09:00)
== END 2023-06-05 19:45 | DRG 522 ==
LOC: ED 18:54 → SUATTDRO 23:15 → EDINP 23:15 → 2W 05-30 01:32 → 3E 05-31 11:13